=== PATIENT | male | born 1960 | race Caucasian/White ===

== ENCOUNTER 2024-04-28 08:55 | Outpatient (AMB) | payer BC, SELFPAY ==
--- NOTE | 2024-04-28 09:00 | A.OFFVIS_ITS ---
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 He has been suffering with this pain for approximately 3 years. Does report injury to the shoulder in 1978, he did not have return of pain until about 3 years ago. Underwent a steroid injection at Orthopedics 2 weeks ago with no improvement of his pain. Injection was given posterior right shoulder, patient endorses pain over right bicep tendon Pain today is rated as a 2/10, constant, worse during the day. Pain is worse with overhead and behind the back reach. Has been taking Tylenol with minimal improvement. Unable to take nonsteroidal anti-inflammatory medications due to current use of Eliquis He has not attempted physical therapy, chiropractor, acupuncture or massage In terms of muscle damage condition is described as aching, dull, shocking, stabbing. Pain is negatively impacting patient's enjoyment of life, general activity, mood, normal work, recreational activities, relationships, sleep and walking. His goal is to be able to return to social golfing. [facility] Medical History (Updated 04/28/24 @ 10:27 by Ragini Colón APRN, [employer] SERV[employer]) Shortness of breath after COVID-19 vaccination Heart failure with preserved ejection fraction Fatigue COPD (chronic obstructive pulmonary disease) CHF (congestive heart failure) Chest pain Atrial fibrillation ACS (acute coronary syndrome) Surgical History (Updated 04/28/24 @ 09:17 by Heike Roblero) History of arthroscopy of left shoulder H/O hernia repair Review of Systems Const All systems reviewed & are unremarkable except as noted in HPI and below Physical Exam Vital Signs: Last Vital Signs Pulse 78 04/28/24 09:10 BP 133/82 04/28/24 09:10 Pulse Ox 98 04/28/24 09:10 Oxygen Delivery Method Room Air 04/28/24 09:10 BMI result Body Mass Index 44.5 General: awake, alert, oriented. Answers questions appropriately. Fully engaged in examination. Skin: warm, dry, intact HEENT: Normocephalic. Hearing intact. Cardiac: External chest normal in appearance. Respiratory: No cough, audible wheezing or stridor. Abdomen: without gross distension. MS: No obvious swelling or deformities. Right shoulder: Decreased range of motion. Pain with overhead reach at 90 degrees. Unable to perform behind the back reach. Tenderness to palpation over right biceps tendon. Neurological: Oriented to person, place, time and situation. Thought process intact. No gait abnormalities appreciated. Psychiatric: Appropriate mood and affect. Good judgment and insight. Assessment & Plan Assessment & Plan (1) Right shoulder pain: Code(s): M25.511 - Pain in right shoulder Category: Medical (2) Biceps tendinitis of right shoulder: Code(s): M75.21 - Bicipital tendinitis, right shoulder Category: Medical Plan Order placed for PT eval and treat Continue Tylenol as needed, unable to take NSAIDs due to current use of Eliquis. Apply lidocaine patches as needed. Discussed in depth diagnosis and options for treatment. If no improvement with physical therapy will plan for ultrasound-guided right biceps tendon injection. If pain persists would then consider diagnostic right suprascapular nerve block in preparation for right suprascapular sprint peripheral nerve stimulator. All questions and concerns answered, patient agrees with the plan. Follow up after PT, sooner if needed Orders: Orders PT Evaluation and Treatment Today M25.511 - Pain in right shoulder, M75.21 - Bicipital tendinitis, right shoulder Medications: New lidocaine 5% leave on most painful area for up to 12 hrs 1 patch topical DAILY PRN 30 ea 3RF pain Coding Level of Care Code New Pt Level 4 (35526) Diagnoses Right shoulder pain M25.511 Biceps tendinitis of right shoulder M75.21
[2024-04-28 09:10] VITALS: BP 133/82; PULSE 78; O2SAT 98; BMI 44.5
== END 2024-04-28 09:50 | disposition home or self-care (01) ==
PROVIDERS: PCP Internal Medicine; Visit Provider Registered Nurse Emergency
DX: M25.511 Pain in right shoulder (principal); M75.21 Bicipital tendinitis, right shoulder
CPT/HCPCS: 99204

== ENCOUNTER → 2024-04-28 08:55 | Outpatient (BNVA) | payer BC, SELFPAY | PROVIDERS: PCP Internal Medicine; Visit Provider Registered Nurse Emergency ==